=== PATIENT | female | born 2000 | race Caucasian/White ===

== ENCOUNTER 2020-10-10 13:52 | Emergency (ER) | payer BC ==
[~2020-10-10] VITALS: Ht 167.6 cm; Wt 54.5 kg
[2020-10-10] MEDS ORDERED: IV NORMAL SALINE 1,000ML 1,000 ML IV ONE (15:00)
[2020-10-10] MEDS ORDERED: ONDANSETRON PF 4 MG/2 ML VIAL. IVP ONE (15:00)
--- NOTE | 2020-10-10 15:09 | PHYS DOC ---
Past History Past Medical History: No Pertinent History (ANITA OTERO APRN) Past Surgical History: No Surgical History (ANITA OTERO APRN) Alcohol Use: Rarely (ANITA OTERO APRN) General Adult EDM: Chief Complaint: NAUSEA/VOMITING/DIARRHEA HPI: HPI: Patient is a 19-year-old female who presents with nausea, vomiting, diarrhea. Symptoms started this morning at 5 AM, patient states that she has been vomiting all day long and is unable to to eat. Patient reports trying to take Pepto this morning but was not able to keep it down. Patient denies abdominal pain, fever, or being around anyone who has been sick recently. Patient is concerned about Covid and is requesting a Covid swab. (ANITA OTERO APRN) Review of Systems: Review of Systems: Constitutional: Denies fever or chills Eyes: Denies change in visual acuity HENT: Denies nasal congestion or sore throat Respiratory: Denies cough or shortness of breath Cardiovascular: Denies chest pain or edema GI: Denies abdominal pain, reports nausea, vomiting, and diarrhea : Denies dysuria Musculoskeletal: Denies back pain or joint pain Integument: Denies rash Neurologic: Denies headache, focal weakness or sensory changes Endocrine: Denies polyuria or polydipsia Lymphatic: Denies swollen glands Psychiatric: Denies depression or anxiety (ANITA OTERO APRN) Allergies: Allergies: Allergies Coded Allergies Type Severity Reaction Last Updated Verified No Known Drug Allergies 10/10/20 No (ANITA OTERO APRN) Physical Exam: PE: Constitutional: Well developed, well nourished, no acute distress, non-toxic appearance. [] HENT: Normocephalic, atraumatic, bilateral external ears normal, oropharynx moist, no oral exudates, nose normal. [] Eyes: PERRLA, EOMI, conjunctiva normal, no discharge. [] Neck: Normal range of motion, no tenderness, supple, no stridor. [] Cardiovascular:Heart rate regular rhythm, no murmur [] Lungs & Thorax: Bilateral breath sounds clear to auscultation [] Abdomen: Bowel sounds normal, soft, tenderness with palpation Skin: Warm, dry, no erythema, no rash. [] Back: No tenderness, no CVA tenderness. [] Extremities: No tenderness, no cyanosis, no clubbing, ROM intact, no edema. [] Neurologic: Alert and oriented X 3, normal motor function, normal sensory function, no focal deficits noted. [] Psychologic: Affect normal, judgement normal, mood normal. [] (ANITA OTERO APRN) Current Patient Data: Vital Signs: Vital Signs Date Time Temp Pulse Resp B/P (MAP) Pulse Ox O2 Delivery O2 Flow Rate FiO2 10/10/20 14:00 98.0 97 16 118/76 (90) 99 Room Air (ANITA OTERO APRN) EKG: EKG: [] (ANITA OTERO APRN) Radiology/Procedures: Radiology/Procedures: []XAM: Abdomen sonogram. HISTORY: Pain. TECHNIQUE: Sonographic imaging of the abdomen was performed. COMPARISON: None. FINDINGS: The appendix is not seen. There is no mass or fluid collection. There is no lymphadenopathy. The liver is normal in size. No focal hepatic lesion is seen. The common bile duct is normal in caliber. The gallbladder, right kidney, pancreas and inferior vena cava are unremarkable. IMPRESSION: No acute sonographic finding. The appendix is not seen. Cross sectional imaging may be indicated there is concern for a sonographically occult appendicitis. Electronically signed by: Maki Bautista MD (10/10/2020 4:43 PM) [id number] (ANITA OTERO APRN) Heart Score: Risk Factors: Risk Factors: DM, Current or recent (<one month) smoker, HTN, HLP, family history of CAD, obesity. Risk Scores: Score 0 - 3: 2.5% MACE over next 6 weeks - Discharge Home Score 4 - 6: 20.3% MACE over next 6 weeks - Admit for Clinical Observation Score 7 - 10: 72.7% MACE over next 6 weeks - Early Invasive Strategies (ANITA OTERO APRN) Course & Med Decision Making: Course & Med Decision Making Pertinent Labs and Imaging studies reviewed. (See chart for details) [] Patient started having vomiting, nausea, diarrhea at 5 AM this morning. Denies fever. Patient's white count came back at 16.1. Patient had guarding to abdomen. Mom requested ultrasound to be done of her abdomen to rule out gallbladder or appendicitis. CT was negative for cholecystitis. Explained to mom that we would be able to do a CT of the abdomen to rule out an appendectomy but mom requested that we wait and she will follow up with her primary care physician if symptoms do not improve. Explained risk and benefit mom is requesting to follow-up outpatient. Patient is hemodynamically stable. Reports feeling much better after fluids and nausea medication. (ANITA OTERO APRN) Dragon Disclaimer: Dragon Disclaimer: This electronic medical record was generated, in whole or in part, using a voice recognition dictation system. (ANITA OTERO APRN) Attending Co-Sign I oversaw on the above date of service of this patient and discussed the care with the [employer]. Patient nontoxic-appearing, ambulatory and hemodynamically stable. Despite appendix not being fully seen on ultrasound, patient not having any active abdominal pain. Given symptomology, cannot definitively rule out COVID- 19 given current pandemic and so patient was tested with results pending. I agree with the findings, plan of care, and disposition as documented. (JAMEY PEREZ DO) Departure Departure: Impression: Primary Impression: Nausea, vomiting and diarrhea Disposition: 01 DC HOME SELF CARE/HOMELESS Condition: IMPROVED Referrals: PCP,MONY (PCP) Patient Instructions: Viral Gastroenteritis, [id number] Additional Instructions: You were seen today for nausea vomiting and diarrhea. Zofran was given to treat your nausea. We also administered fluids due to diarrhea and vomiting. You home with a prescription for Zofran for nausea. Usually symptoms will subside within 24 hours. Please continue with fluids to avoid dehydration. Return to the emergency room with worsening symptoms or concerns. Otherwise you can follow-up with your primary care physician for further evaluation. Thank you for choosing [facility], I hope you feel better soon. Scripts Ondansetron Hcl (ZOFRAN) 4 Mg Tablet 4 MG PO TID PRN PRN for NAUSEA, #9 TAB Prov: ANITA OTERO APRN 10/10/20 ANITA OTERO APRN Oct 10, 2020 15:09 JAMEY PEREZ DO Oct 11, 2020 06:52
[2020-10-10 15:39] LABS: BASO # 0.1 x10^3/uL (0.0-0.2); BASO % 1 % (0-3); EOS % 0 % (0-3); HEMOGLOBIN 14.1 g/dL (12.0-15.5); LYMPH # 0.2 x10^3/uL (1.0-4.8); LYMPH % 1 % (24-48); MEAN CORPUSCULAR HEMOGLOBIN 30 pg (25-35); MEAN CORPUSCULAR HGB CONC 34 g/dL (31-37); MEAN CORPUSCULAR VOLUME 89 fL (79-100); MONO # 0.6 x10^3/uL (0.0-1.1); MONO % 4 % (0-9); NEUT # 15.1 x10^3uL (1.8-7.7); NEUT % 94 % (31-73); PLATELET COUNT 180 x10^3/uL (140-400); RED BLOOD COUNT 4.74 x10^6/uL (3.50-5.40); RED CELL DISTRIBUTION WIDTH 13.4 % (11.5-14.5); WHITE BLOOD COUNT 16.1 x10^3/uL (4.0-11.0)
[2020-10-10 15:45] LABS: CALCIUM 8.6 mg/dL (8.5-10.1); CREATININE 0.7 mg/dL (0.6-1.0); GFR 105.6; POTASSIUM 3.8 mmol/L (3.5-5.1)
[2020-10-10 16:33] LABS: % BASOS 2 % (0-3); % LYMPHS 3 % (24-48); % MONOS 8 % (0-10); % SEGS 87 % (35-66); PLT ESTIMATE ADEQUATE (ADEQUATE)
--- NOTE | 2020-10-10 16:45 | RAD ---
EXAM: Abdomen sonogram. HISTORY: Pain. TECHNIQUE: Sonographic imaging of the abdomen was performed. COMPARISON: None. FINDINGS: The appendix is not seen. There is no mass or fluid collection. There is no lymphadenopathy . The liver is normal in size. No focal hepatic lesion is seen. The common bile duct is normal in nishant iber. The gallbladder, right kidney, pancreas and inferior vena cava are unremarkable. IMPRESSION: No acute sonographic finding. The appendix is not seen. Cross sectional imaging may be in dicated there is concern for a sonographically occult appendicitis. Electronically signed by: Maki Bautista MD (10/10/2020 4:43 PM) [id number]
[2020-10-10 16:51] VITALS: BP 105/61
[2020-10-10 17:10] LABS: BILIRUBIN,URINE NEG (NEG); CLARITY,URINE CLEAR; COLOR,URINE YELLOW; GLUCOSE,URINE NEG (NEG)
[2020-10-10] MEDS ORDERED: ONDA4TAB7 PO (17:10)
[2020-10-10 17:11] LABS: BACTERIA,URINE FEW /HPF (0-FEW); NITRITE,URINE NEG (NEG); RBC,URINE OCC /HPF (0-2); SQUAMOUS EPITHELIAL CELL,UR MANY /LPF; UROBILINOGEN,URINE 0.2 mg/dL (0.2 mg/dL); WBC,URINE OCC /HPF (0-4)
== END 2020-10-10 17:15 | disposition home or self-care (01) ==
LOC: ER 13:52
DX: R11.2 Nausea with vomiting, unspecified (principal); R19.7 Diarrhea, unspecified; Z20.822 Contact with and (suspected) exposure to COVID-19
CPT/HCPCS: 36415; 76705; 80048; 81001; 81025; 85007; 85025; 93975; 96361; 96374; 99285; C9803; J2405; J7030; U0003

== ENCOUNTER 2022-01-12 20:58 | Emergency (ER) | payer BC ==
[~2022-01-12] VITALS: Ht 167.6 cm; Wt 64.5 kg
[~2022-01-12 20:58] MED LIST: ONDA4TAB7 PO
--- NOTE | 2022-01-12 21:19 | PHYS DOC ---
Past History Past Medical History: No Pertinent History Past Surgical History: No Surgical History Alcohol Use: Rarely Adult General Chief Complaint Chief Complaint: FLU SYMPTOM HPI HPI Patient is an otherwise healthy 21-year-old female who presents with a chief complaint of chills, body aches, nausea and vomiting over the last couple of days. States she did not take any medications. Not vaccinated for COVID. Never had Covid. States he is making urine and stool normally for her. Denies any chest pain, shortness of breath, dysuria, hematuria, blood in the stool or diarrhea Review of Systems Review of Systems Review of systems otherwise unremarkable except noted in HPI Allergies Allergies Allergies Coded Allergies Type Severity Reaction Last Updated Verified No Known Drug Allergies 10/10/20 No Physical Exam Physical Exam Constitutional: Well developed, well nourished, no acute distress, non-toxic appearance. [] HENT: Normocephalic, atraumatic, oropharynx moist, no oral exudates, nose normal. [] Eyes: conjunctiva normal, no discharge. [] Neck: Normal range of motion, no tenderness, supple, no stridor. [] Cardiovascular:Heart rate regular rhythm, no murmur [] Lungs & Thorax: Bilateral breath sounds clear to auscultation [] Abdomen: soft, no tenderness, no masses, no pulsatile masses. [] Skin: Warm, dry, no erythema, no rash. [] Back: no CVA tenderness. [] Extremities: No tenderness, no cyanosis, no clubbing, ROM intact, no edema. [] Neurologic: Alert and oriented X 3, normal motor function, normal sensory function, no focal deficits noted. [] Psychologic: Affect normal, judgement normal, mood normal. [] EKG EKG [] Radiology/Procedures Radiology/Procedures [] Heart Score C/O Chest Pain: No Risk Factors: Risk Factors: DM, Current or recent (<one month) smoker, HTN, HLP, family history of CAD, obesity. Risk Scores: Risk Factors: DM, Current or recent (<one month) smoker, HTN, HLP, family history of CAD, obesity. Course & Med Decision Making Course & Med Decision Making Patient is a 20-year-old female presents with cold/flu/COVID symptoms for the la st 2 days has taken no medication Vital signs not concerning. Physical exam noted above. Given medications for symptom control. COVID rapid negative. Flu negative. Urinalysis negative. Feeling better after medications. Discussed symptom control at home. Advised to follow-up with primary care physician. Gave return precautions to the ED. Patient grateful, verbalized understanding agree with plan of discharge [] Dragon Disclaimer Dragon Disclaimer This electronic medical record was generated, in whole or in part, using a voice recognition dictation system. Departure Departure: Impression: Primary Impression: Nausea & vomiting Additional Impressions: Body aches Viral syndrome Disposition: HOME / SELF CARE / HOMELESS Condition: STABLE Referrals: JUAN NUÑEZ PAC (PCP) Additional Instructions: Fever coming into the emergency department tonight allowing us to take care of you. Please read the attached information carefully to go over things we discussed. Please continue a Tylenol, ibuprofen and Benadryl regimen every 6 hours as needed. Please stay well-hydrated, eat at least 3 small nutritious meals daily and take a multivitamin. Please cease any use of marijuana as this can cause refractory nausea and vomiting given the potency of the new strains. You must cease using marijuana for at least 6 weeks to determine if this is the cause of your nausea and vomiting. Please follow-up tomorrow with your primary care physician update on your ED visit and set up a follow-up for reevaluation. Please come back with new or concerning symptoms as discussed. Problem Qualifiers RYAN COSTA MD Jan 12, 2022 21:19
[2022-01-12] MEDS ORDERED: diphenhydrAMINE HCL 25 MG CAPSULE PO ONE (22:00)
[2022-01-12] MEDS ORDERED: ONDANSETRON ODT 4 MG TAB.RAPDIS PO ONE (22:00)
[2022-01-12] MEDS ORDERED: ACETAMINOPHEN 500 MG TABLET PO ONE (22:00)
[2022-01-12] MEDS ORDERED: IBUPROFEN 600 MG TABLET. PO ONE (22:00)
[2022-01-12 22:20] LABS: BACTERIA,URINE 0 /HPF (0-FEW); CLARITY,URINE CLEAR; COLOR,URINE YELLOW; GLUCOSE,URINE NEG (NEG); NITRITE,URINE NEG (NEG); RBC,URINE OCC /HPF (0-2); SQUAMOUS EPITHELIAL CELL,UR MANY /LPF; UROBILINOGEN,URINE 0.2 mg/dL (0.2 mg/dL); WBC,URINE 0 /HPF (0-4)
[2022-01-12 22:30] VITALS: BP 94/68
== END 2022-01-12 22:35 | disposition home or self-care (01) ==
LOC: ER 20:58
DX: B34.9 Viral infection, unspecified (principal); R11.2 Nausea with vomiting, unspecified; M79.10 Myalgia, unspecified site; Z20.822 Contact with and (suspected) exposure to COVID-19
CPT/HCPCS: 81001; 81025; 87426; 99284; Q0162; Q0163